=== PATIENT | female | born 2000 | race Caucasian/White ===

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

== ENCOUNTER 2024-06-04 15:26 | Emergency (ER) | payer MEDICAID ==
[~2024-06-04] VITALS: Ht 165.1 cm; Wt 99.8 kg
[2024-06-04 15:38] VITALS: BP_SYST 120; PULSE 85; RESP 18; TEMP 98.3; O2SAT 98
[2024-06-04 16:58] LABS: BILIRUBIN,URINE NEGATIVE (NEGATIVE); CLARITY/URINE CLEAR (CLEAR); COLOR,URINE YELLOW (YELLOW); GLUCOSE,URINE NEGATIVE (NEGATIVE); KETONES,URINE NEGATIVE (NEGATIVE); LEUKOCYTE ESTERASE ,URINE NEGATIVE (NEGATIVE); NITRITE, URINE NEGATIVE (NEGATIVE); PH,URINE 5.5 (5.0-8.0); PROTEIN URINE NEGATIVE (NEGATIVE); UROBILINOGEN,URINE 0.2 (0.2-1.0)
[2024-06-04 17:08] LABS: BLOOD, URINE TRACE (NEGATIVE)
[2024-06-04 17:10] LABS: BACTERIA,URINE RARE /HPF (None Seen); MUCUS,URINE None Seen /LPF (None Seen); RBC,URINE 0-3 /HPF (0-3); WBC,URINE 0-3 /HPF (0-3)
[2024-06-04 18:04] LABS: BASOPHILS # (AUTO) 0.1 K/uL (0.0-0.2); BASOPHILS % (AUTO) 0.5 % (0.0-2.0); EOSINOPHILS # (AUTO) 0.1 K/uL (0.0-0.4); EOSINOPHILS % (AUTO) 0.5 % (0.0-4.0); HEMATOCRIT 39.3 % (36-48); HEMOGLOBIN 13.7 g/dL (12.0-16.0); LYMPHOCYTES # (AUTO) 3.2 K/uL (1.0-5.5); LYMPHOCYTES % (AUTO) 29.7 % (20.5-51.5); MEAN CORPUSCULAR HEMOGLOBIN 29 pg (27-31); MEAN CORPUSCULAR HGB CONC 35 % (32-36); MEAN CORPUSCULAR VOLUME 84 fL (79.0-98.0); MONOCYTES # (AUTO) 0.5 K/uL (0.0-1.0); MONOCYTES % (AUTO) 4.6 % (1.7-9.3); NEUTROPHILS % (AUTO) 64.7 % (40.0-70.0); PLATELET COUNT (AUTO) 359 K/uL (130-430); RED BLOOD CELL COUNT(AUTO) 4.67 MIL/uL (4.2-6.2); RED CELL DISTRIBUTION WIDTH 12.8 % (9.0-15.0); WHITE BLOOD COUNT (AUTO) 10.9 K/uL (4.8-10.8)
[2024-06-04 18:14] LABS: SERUM HCG (QUALITATIVE) NEGATIVE (NEGATIVE)
[2024-06-04 18:17] LABS: PROTHROMBIN TIME 10.4 SECS (9.5-12.5)
[2024-06-04 18:46] LABS: ANION GAP 9 (5-15); CALCIUM 9.4 mg/dL (8.4-11.0); CARBON DIOXIDE 27 mmol/L (23-29); CHLORIDE 104 mmol/L (98-107); CREATININE 0.72 mg/dL (0.55-1.30); GFR AFRICAN AMERICAN 130 mL/min (>90); GFR NON AFRICAN-AMERICAN 108 mL/min (>90); GLUCOSE 89 mg/dL (74-106); POTASSIUM 4.5 mmol/L (3.5-5.1); SODIUM SERUM 140 mmol/L (136-145); THYROID STIMULATING HORMONE 0.77 uIu/mL (0.36-3.74); UREA NITROGEN, BLOOD 12 mg/dL (8-21)
[2024-06-04 18:48] LABS: ALCOHOL, BLOOD < 3 mg/dL (<10)
[2024-06-04 19:15] VITALS: BP_SYST 118; PULSE 91; RESP 18; TEMP 97.4; O2SAT 100
== END 2024-06-04 22:00 | disposition home or self-care (01) ==
LOC: SED 15:26
DX: R55 Syncope and collapse (principal); R11.2 Nausea with vomiting, unspecified; R06.02 Shortness of breath; R07.89 Other chest pain
CPT/HCPCS: 70450-TC; 71045; 80048; 81000; 81001; 81015; 81025; 84443; 84484; 84703; 85025; 85610; 85730; 93005; 99285; G0482